=== PATIENT | male | born 1970 | race Hispanic/Latino ===

== ENCOUNTER 2017-08-27 08:02 | Emergency (ER) | payer BC ==
[2017-08-27 08:31] LABS: #Eosinphils 0.1 thou/uL (0.0-0.7); #Lymphocytes 1.6 thou/uL (1.20-3.40); #Monocytes 0.5 thou/uL (0.11-0.59); #Neutrophils 11.1 thou/uL (1.40-6.50); %Basophils 0.2 % (0.0-1.0); %Eosinophils 0.6 % (0.0-10.0); %Lymphocytes 12.2 % (21.0-51.0); %Monocytes 3.7 % (0.0-10.0); Hematocrit 45.3 % (42.0-52.0); Mean Platelet Volume 8.3 fL (7.4-10.4); Red Blood Cell (RBC) Count 4.56 mill/uL (4.70-6.10); White Blood Cell (WBC) Count 13.3 thou/uL (4.8-10.8)
[2017-08-27 08:50] LABS: ALT (SGPT) 27 U/L (8-55); AST (SGOT) 18 U/L (5-34); Alkaline Phosphatase 59 U/L (40-150); Anion Gap 10 mmol/L (10-20); BUN (Urea Nitrogen) 14 mg/dL (8.9-20.6); Bilirubin, Total 0.4 mg/dL (0.2-1.2); CK (CPK) 222 U/L (30-200); Calc. Creatinine Clearance 0 mL/min (70-130); Calcium 9.4 mg/dL (7.8-10.44); Carbon Dioxide 21 mmol/L (22-29); Chloride 110 mmol/L (98-107); Estimated GFR-MDRD Greater than 90; Globulin 3.5 g/dL (2.4-3.5); Lipase 15 U/L (8-78); Protein, Total 7.7 g/dL (6.0-8.3)
[2017-08-27 08:55] LABS: Troponin I Less than 0.010 ng/mL (< 0.028)
--- NOTE | 2017-08-27 10:51 | ULT ---
RIGHT UPPER QUADRANT ABDOMINAL ULTRASOUND: HISTORY: Epigastric pain that radiates to the back that started at 4 this morning. TECHNIQUE: Multiplanar pittman-scale and color Doppler images were obtained in a right upper quadrant abdominal ult rasound. FINDINGS: The liver is normal in echogenicity without focal lesions or intrahepatic ductal dilatation. The gal lbladder is filled with stones and is distended. There is no gallbladder wall thickening or perichol ecystic fluid. The common bile duct is at the upper limits of normal, measuring 6 mm. The pancreas cannot be visualized. The right kidney is normal in echogenicity without hydronephrosis or calculus and measures 10.3 cm in length. IMPRESSION: Cholelithiasis. POS: KALYN
--- NOTE | 2017-08-28 13:27 | EKG ---
Test Reason : Blood Pressure : / mmHG Vent. Rate : 063 BPM Atrial Rate : 063 BPM P-R Int : 168 ms QRS Dur : 090 ms QT Int : 394 ms P-R-T Axes : 001 -26 001 degrees QTc Int : 403 ms Normal sinus rhythm Normal ECG Confirmed by BENITO ESPINOZA ([id number]), order editor STACY WARD ([id number]) on 08/28/2017 1:26:54 PM Referred By: Confirmed By:BENITO ESPINOZA
== END 2017-08-27 11:05 | disposition home or self-care (01) ==
LOC: ERS 08:02
DX: K80.20 Calculus of gallbladder without cholecystitis without obstruction (principal)
CPT/HCPCS: 36415; 76705; 80053; 82553; 83690; 84484; 85025; 93005

== ENCOUNTER 2017-12-06 16:37 | Inpatient (IN) | payer BC ==
[2017-12-06 18:31] LABS: #Basophils 0.1 thou/uL (0.0-0.2); #Eosinphils 0.1 thou/uL (0.0-0.7); #Lymphocytes 1.4 thou/uL (1.20-3.40); #Monocytes 0.4 thou/uL (0.11-0.59); #Neutrophils 11.3 thou/uL (1.40-6.50); %Basophils 0.5 % (0.0-1.0); %Eosinophils 0.7 % (0.0-10.0); %Lymphocytes 10.7 % (21.0-51.0); %Monocytes 3.2 % (0.0-10.0); %Neutrophils 84.9 % (42.0-75.0); Hemoglobin 14.5 g/dL (14.0-18.0); Mean Corpuscular Hemoglobin 32.3 pg (27.0-31.0); Mean Corpuscular Volume 95.1 fl (80.0-94.0); Mean Platelet Volume 7.6 fL (7.4-10.4); Platelet Count 201 thou/uL (130-400); RBC Distribution Width 11.9 % (11.5-14.5); Red Blood Cell (RBC) Count 4.49 mill/uL (4.70-6.10); White Blood Cell (WBC) Count 13.3 thou/uL (4.8-10.8)
[2017-12-06 18:51] LABS: ALT (SGPT) 26 U/L (8-55); AST (SGOT) 20 U/L (5-34); Albumin 4.5 g/dL (3.5-5.0); Alkaline Phosphatase 65 U/L (40-150); Bilirubin, Direct 0.3 mg/dL (0.1-0.3); Bilirubin, Total 0.8 mg/dL (0.2-1.2); Protein, Total 7.9 g/dL (6.0-8.3)
[2017-12-06 18:52] LABS: Anion Gap 13 mmol/L (10-20); BUN (Urea Nitrogen) 18 mg/dL (8.9-20.6); Calc. Creatinine Clearance 0 mL/min (70-130); Calcium 9.6 mg/dL (7.8-10.44); Carbon Dioxide 22 mmol/L (22-29); Chloride 106 mmol/L (98-107); Estimated GFR-MDRD Greater than 90; Glucose 94 mg/dL (70-105); Lipase 8 U/L (8-78); Potassium 4.1 mmol/L (3.5-5.1); Sodium 137 mmol/L (136-145)
[2017-12-06 19:42] LABS: Bilirubin Negative (Negative); Blood, Urine Negative (Negative); Clarity CLEAR (Clear); Glucose, Urine (Dipstick) Negative (Negative); Leukocyte Negative (Negative); Nitrite Negative (Negative); Protein, Urine (Dipstick) Negative (Neg-Trace); Specific Gravity, Urine 1.023 (1.002-1.036); Urobilinogen 0.2 mg/dL (0.2-1.0); pH, Urine 5.5 (5.0-9.0)
[2017-12-06] MEDS ORDERED: Piperacillin/Tazobactam 4.5 GM in Sodium Chloride 0.9% 100 ML IVPB SCH (20:45)
--- NOTE | 2017-12-06 22:01 | ULT ---
ULTRASOUND ABDOMEN LIMITED: (RIGHT UPPER QUADRANT) 12/06/17 HISTORY: 47-year-old male with mid epigastric pain. COMPARISON: 08/27/17. FINDINGS: Pancreas is almost completely obscured by shadowing from bowel gas. Hepatic size is within normal bass its. Gallbladder is distended, as was previously the case. A few mobile gallstones were demonstrated on the previous study. Currently, there is a nonmobile 13 mm calculus in the gallbladder neck. Gallbl adder wall is diffusely thickened up to 5 mm. Negative sonographic Brito's sign, but patient has yasmeen en pain medication. Tiny 3 mm hyperechoic focus adherent to the nondependent gallbladder wall on the mucosal side. This may represent a tiny gallbladder polyp. Common duct is poorly visualized, but ther e is no gross evidence of biliary ductal dilation. No hydronephrosis of the right kidney. IMPRESSION: 1. Cholelithiasis, consisting of at least one nonmobile gallstone in the gallbladder neck. 2. Gallbladder mural thickening and mild distention. CLARKE Gilmore POS: KALYN
[2017-12-07] MEDS ORDERED: Ondansetron ODT 4 MG TAB SL PRN (00:40)
[2017-12-07] MEDS ORDERED: Ondansetron HCl/PF 4 MG/2 ML Vial IVP PRN ×2 (00:40→12:06)
[2017-12-07] MEDS ORDERED: Lactated Ringer's 1,000 ML IV SCH (00:45)
[2017-12-07] MEDS ORDERED: Piperacillin/Tazobactam 4.5 GM in Sodium Chloride 0.9% 100 ML IVPB SCH (06:00)
[2017-12-07 06:49] VITALS: BMI 33.7
[2017-12-07] MEDS ORDERED: Glycopyrrolate 0.2 MG/ML 5 ML SYRINGE ONE (07:01)
[2017-12-07] MEDS ORDERED: Lidocaine 1% PF 5 ML VIAL ONE (07:01)
[2017-12-07] MEDS ORDERED: Ondansetron HCl/PF 4 MG/2 ML Vial ONE (07:01)
[2017-12-07] MEDS ORDERED: PROPOFOL 200 MG/20 ML VIAL ONE (07:01)
[2017-12-07] MEDS ORDERED: Dexamethasone 20 MG/5 ML VIAL ONE (07:01)
[2017-12-07] MEDS ORDERED: Ketorolac Tromethamine 30 MG/ML VIAL ONE (09:38)
--- NOTE | 2017-12-07 09:45 | HP ---
HISTORY OF PRESENT ILLNESS: Eric Cabrera is a 46-year-old male who works for a [employer]. He does lifting. I saw him 09/24/2017 for cholecystitis. I recommended laparoscopic cholecy stectomy. Financial barriers exist and he did not pursue that. He has done well until now when he p resents with epigastric right upper quadrant pain, presented in the emergency room with normal liver function tests and ultrasound revealing gallstones, normal bile duct caliber. [facility] was [facility], received Zosyn. Plan is for a laparoscopic cholecystectomy. Risk of infection, bleeding, visce ral biliary injury, open procedure discussed. Questions answered. ALLERGIES: None. TOBACCO: None. ALCOHOL: None. MEDICATIONS: None routine. PAST SURGICAL HISTORY: Right inguinal hernia repair with mesh [facility] in the past. PAST MEDICAL HISTORY: Noncontributory except for existing cholelithiasis, cholecystitis problems. REVIEW OF SYSTEMS: Ten point noncontributory. PHYSICAL EXAMINATION: VITAL SIGNS: Weight 95 kilograms, on admission he was 207/114, 20 respiratory rate, 98 degrees, 66 h eart rate. HEENT: Unremarkable. LUNGS: Clear to auscultation. CARDIAC: Regular rate and rhythm without murmur or gallop. ABDOMEN: Tenderness in the right upper quadrant and epigastrium with positive Brito sign. EXTREMITIES: Unremarkable. Sclerae nonicteric. SKIN: Nonjaundiced. Liver function tests normal. ASSESSMENT AND PLAN: Acute cholecystitis. Recommend laparoscopic video cholecystectomy. White count 13, hemoglobin 14. Risks and benefits described. He consents.
[2017-12-07] MEDS ORDERED: Bupivacaine HCl 0.5%/Epinephrine 1:200,000/PF 30 ml Vial ONE (10:36)
[2017-12-07] MEDS ORDERED: Fentanyl 250 MCG/5 ML VIAL ONE (10:38)
[2017-12-07] MEDS ORDERED: Ibuprofen 600 MG TAB PO PRN (11:58)
[2017-12-07] MEDS ORDERED: traMADol HCl 50 MG TAB PO PRN ×2 (11:58)
[2017-12-07] MEDS ORDERED: Acetaminophen 500 MG TAB PO PRN (11:58)
[2017-12-07] MEDS ORDERED: Promethazine HCl 25 MG/ML VIAL IM PRN (12:06)
[2017-12-07] MEDS ORDERED: Promethazine HCl 25 MG/ML VIAL SLOW IVP PRN (12:06)
--- NOTE | 2017-12-07 12:15 | OP ---
PREOPERATIVE DIAGNOSES: Acute cholecystitis, cholelithiasis. POSTOPERATIVE DIAGNOSES: Acute cholecystitis, cholelithiasis. PROCEDURE: Laparoscopic video cholecystectomy. SURGEON: Eric Barrientos M.D. ANESTHESIA: General. Local 0.5% Marcaine with epinephrine 30 mL. DESCRIPTION OF PROCEDURE: The patient was taken to the operating room under general anesthesia, abdo men was prepared with ChloraPrep, draped in routine fashion. Local anesthetic 0.5% Marcaine with epi nephrine infiltrated through skin and subcutaneous tissue about all port sites. Supraumbilical incis ion made and pneumoperitoneum to 15 mmHg obtained with the Veress needle placing with a 5 port laparo scope inserted. Right subxiphoid incision made and 11 port placed. Right subcostal incision made mi d clavicular anterior axillary lines 5 ports placed. Liver appeared to be normal. Fundus of gallbla dder was thickened and edematous and grasped and reflected cephalad. Infundibulum grasped and reflec ron laterally. Gallbladder entirely was edematous and inflamed. Cystic artery and duct dissected fr ee. Critical view obtained with pericholecystic dissection 2/3 of the cystic plate, cystic artery an d duct doubly clipped proximally, divided, and gallbladder dissected free from the liver bed obtainin g good hemostasis prior to division of final peritoneal attachments. Gallbladder and contents remove d including large stones submitted to Pathology. Good hemostasis ensured with the cautery. Chris w as used. Irrigant and pneumoperitoneum evacuated. All instruments removed and all skin incisions ap proximated with good subdermal 4-0 Monocryl and DermaGlue applied.
[2017-12-07 13:22] VITALS: BP 148/91; TEMP 97.6
--- NOTE | 2017-12-07 15:53 | DIS ---
PREOPERATIVE DIAGNOSES: Acute and chronic cholecystitis and cholelithiasis. PROCEDURES: Ultrasound of gallbladder, laparoscopic video cholecystectomy. HOSPITAL COURSE: A 47-year-old male I saw in September for symptomatic cholelithiasis, but for financi al barriers he was not able to proceed with cholecystectomy. He had another attack, presented to the emergency room repeating ultrasound which revealed gallstones, normal bile duct caliber, and normal liver function test. He was given intravenous antibiotics, kept overnight hydrated and taken to the operating room for a laparoscopic cholecystectomy. Postoperatively, discharged home with diet as tina erated. Activity as tolerated. [id number] Tylenol, Motrin for pain and Ultram #20 and 1 refil l given and follow up in my office in 2-3 weeks.
== END 2017-12-07 15:45 | disposition home or self-care (01) | DRG 419 ==
LOC: ERS 16:37 → SJJU 12-07 00:18
PROVIDERS: ADMIT Specialist; ATTEND Specialist
PROC: 0FT44ZZ Resection of Gallbladder, Percutaneous Endoscopic Approach (ICD-10-PCS; principal; 2017-12-07)
DX: K80.12 Calculus of gallbladder with acute and chronic cholecystitis without obstruction (principal)
CPT/HCPCS: 36415; 76705; 80048; 80076; 81003; 83690; 85025; 88304; 96361; 96365; J0131; J0670; J1100; J1885; J2001; J2405; J2543; J2704; J3010; J7050